=== PATIENT | male | born 1955 | race African-American/Black ===

== ENCOUNTER 2017-10-20 20:52 | Emergency (ER) | payer SELFPAY ==
[~2017-10-20] VITALS: Ht 188 cm; Wt 113.0 kg
[2017-10-20] MEDS ORDERED: MECLIZINE 12.5MG TABLET PO ONE (23:15)
[2017-10-21 00:33] LABS: BASOPHILS % 0.5 % (0.0-2.0); CARBON DIOXIDE 24 mEq/L (21-32); CHLORIDE 105 mEq/L (98-107); EOSINOPHILS % 0.5 % (0.0-5.0); HEMATOCRIT. 41.7 % (42.0-52.0); HEMOGLOBIN. 14.4 g/dL (14.0-18.0); LYMPHOCYTES % 17.9 % (20.0-50.0); MEAN CORPUSCULAR HEMOGLOBIN 29.3 pg (28.0-32.0); MEAN CORPUSCULAR VOLUME 84.7 fL (80.0-94.0); MEAN PLATELET VOLUME 8.6 fl (7.4-10.4); MONOCYTES % 4.7 % (2.0-8.0); NEUTROPHILS % 76.4 % (40.0-76.0); PLATELET 149 x1000/uL (130-400); RED BLOOD CELL COUNT 4.92 mill/uL (4.7-6.1); RED CELL DISTRIBUTION WIDTH 14.8 % (11.6-14.6); TROPONIN I < 0.02 ng/mL (0.00-0.04)
[2017-10-21 04:00] VITALS: BP 124/75
== END 2017-10-21 04:00 | disposition home or self-care (01) ==
LOC: ER 22:02
DX: R42 Dizziness and giddiness (principal); I10 Essential (primary) hypertension; R11.2 Nausea with vomiting, unspecified; E11.9 Type 2 diabetes mellitus without complications
CPT/HCPCS: 36415; 70450; 71010; 80053; 84484; 85025; 99285; Z7610; J8597